=== PATIENT | female | born 1950 | race African-American/Black ===

== ENCOUNTER 2017-01-25 17:36 | Emergency (ER) | payer BC, MEDICAID ==
[~2017-01-25] VITALS: Ht 162.6 cm; Wt 91.0 kg
[~2017-01-25 17:36] MED LIST: AMLO10TA80; ATOR-2; BENA20TA3; CLOP75TA15; CLOP75TA2; GLIP10TA72 PO; METF500T PO
[2017-01-25] MEDS ORDERED: MORPHINE SULFATE 4 MG/ML CPJ (NOT FOR IM USE) IV STA (18:47)
[2017-01-25] MEDS ORDERED: ONDANSETRON HCL 4MG/2ML VIAL IV STA (18:47)
[2017-01-25 19:46] LABS: BASOPHILS % 0.7 % (0.0-2.0); EOSINOPHILS % 2.2 % (0.0-5.0); HEMATOCRIT. 37.7 % (36.0-48.0); HEMOGLOBIN. 12.2 g/dL (12.0-16.0); LYMPHOCYTES % 19.6 % (20.0-50.0); MEAN CORPUSCULAR HEMOGLOBIN 26.2 pg (28.0-32.0); MEAN CORPUSCULAR VOLUME 80.6 fL (81.0-99.0); MEAN PLATELET VOLUME 8.4 fl (7.4-10.4); MONOCYTES % 11.4 % (2.0-8.0); NEUTROPHILS % 66.1 % (40.0-76.0); PLATELET 222 x1000/uL (130-400); RED BLOOD CELL COUNT 4.68 mill/uL (4.2-5.4); RED CELL DISTRIBUTION WIDTH 14.6 % (11.6-14.6)
[2017-01-25 20:04] LABS: CARBON DIOXIDE 28 mEq/L (21-32); CHLORIDE 106 mEq/L (98-107); TROPONIN I < 0.02 ng/mL (0.00-0.04)
[2017-01-25] MEDS ORDERED: MORPHINE SULFATE 4 MG/ML CPJ (NOT FOR IM USE) IV ONE (20:45)
[2017-01-25 21:06] VITALS: BP 164/78
== END 2017-01-25 21:58 | disposition home or self-care (01) ==
LOC: ER 18:55
DX: M54.30 Sciatica, unspecified side (principal); R07.89 Other chest pain; E11.9 Type 2 diabetes mellitus without complications; I10 Essential (primary) hypertension; E78.00 Pure hypercholesterolemia, unspecified; K21.9 Gastro-esophageal reflux disease without esophagitis; Z90.710 Acquired absence of both cervix and uterus; Z90.49 Acquired absence of other specified parts of digestive tract; Z98.890 Other specified postprocedural states
CPT/HCPCS: 36415; 71010; 72110; 80053; 83690; 84484; 85025; 93005; 96374; 96375; 96376; 99285; J2270; J2405

== ENCOUNTER 2019-01-08 04:25 | Inpatient (IN) | payer BC, MEDICAID ==
[~2019-01-08] VITALS: Ht 162.6 cm; Wt 74.8 kg
[~2019-01-08 04:25] MED LIST changes: -AMLO10TA80; +AMLO10TA80 PO; -ATOR-2; +ATOR-2 PO; -BENA20TA3; -CLOP75TA15; +CLOP75TA15 PO; -CLOP75TA2; +GLIP10TA3 PO; -GLIP10TA72 PO
[2019-01-08] MEDS ORDERED: PREDNISONE 20MG TABLET PO STA (04:45)
[2019-01-08] MEDS ORDERED: IPRATROPIUM BROMIDE (0.02%) 0.5MG/2.5ML NEB HHN STA (04:45)
[2019-01-08] MEDS ORDERED: ALBUTEROL (0.083%) 2.5MG/3ML NEB HHN STA (04:45)
[2019-01-08 05:30] LABS: CHLORIDE 106 mEq/L (98-107)
[2019-01-08 05:33] LABS: BASOPHILS % 0.2 % (0.0-2.0); EOSINOPHILS % 4.2 % (0.0-5.0); HEMATOCRIT. 33.5 % (36.0-48.0); HEMOGLOBIN. 10.8 g/dL (12.0-16.0); LYMPHOCYTES % 16.1 % (20.0-50.0); MEAN CORPUSCULAR HEMOGLOBIN 25.5 pg (28.0-32.0); MEAN CORPUSCULAR VOLUME 79.1 fL (81.0-99.0); MEAN PLATELET VOLUME 8.6 fl (7.4-10.4); MONOCYTES % 9.6 % (2.0-8.0); NEUTROPHILS % 69.9 % (40.0-76.0); PLATELET 159 x1000/uL (130-400); RED BLOOD CELL COUNT 4.23 mill/uL (4.2-5.4); RED CELL DISTRIBUTION WIDTH 17.7 % (11.6-14.6)
[2019-01-08] MEDS ORDERED: NITROGLYCERIN 0.4MG TABLET SL SL ONE (05:45)
[2019-01-08] MEDS ORDERED: ASPIRIN 325MG EC TABLET PO ONE (06:30)
[2019-01-08] MEDS ORDERED: ACETAMINOPHEN 325MG TABLET PO PRN (08:45)
[2019-01-08] MEDS ORDERED: HYDROCODONE/ACETAMINOPHEN 5/325MG TABLET PO PRN (08:45)
[2019-01-08] MEDS ORDERED: ONDANSETRON HCL 4MG/2ML INJ IV PRN (08:45)
[2019-01-08] MEDS ORDERED: MORPHINE SULFATE 2 MG/ML CPJ (NOT FOR IM USE) IV PRN (08:45)
[2019-01-08] MEDS ORDERED: CLONIDINE 0.1MG TABLET PO PRN (08:45)
[2019-01-08 11:00] VITALS: BP 144/77
[2019-01-08] MEDS ORDERED: SIMV5TAB58 MT (11:28)
[2019-01-08] MEDS ORDERED: BENA20TA77 MT (11:28)
[2019-01-08 12:00] VITALS: BP 144/77
[2019-01-08] MEDS ORDERED: MAGNESIUM/ALUMINUM HYDROXIDE/SIMETHICONE 30ML UDC PO PRN (12:15)
[2019-01-08] MEDS: BLOOD SUGAR DIAGNOSTIC STRIP TEST SCH ×3 (12:26→21:40)
[2019-01-08] MEDS ORDERED: DEXTROSE 50% WATER 50ML SYRINGE IV PRN (12:30)
[2019-01-08] MEDS: AMLODIPINE 10MG TABLET PO SCH (13:07)
[2019-01-08] MEDS: INSULIN LISPRO 100 UNITS/ML SUBCUT SCH ×3 (13:09→21:45)
[2019-01-08] MEDS: ENOXAPARIN 40MG/0.4ML SYR SUBCUT SCH (13:10)
[2019-01-08 16:00] VITALS: BP 156/56
[2019-01-08] MEDS: IPRATROPIUM/ALBUTEROL 0.5-3(2.5)MG/3ML NEB HHN PRN (16:35)
[2019-01-08] MEDS: METFORMIN HCL 500MG TABLET PO SCH (18:08)
[2019-01-08 19:48] LABS: CREATINE KINASE MB FRACTION 5.5 ng/mL (0.5-3.6)
[2019-01-08 20:07] VITALS: BP 165/70
[2019-01-08] MEDS: FAMOTIDINE 20MG TABLET PO SCH (21:45)
[2019-01-09 00:04] VITALS: BP 136/51
[2019-01-09 00:07] LABS: CREATINE KINASE MB FRACTION 5.8 ng/mL (0.5-3.6)
[2019-01-09] MEDS: IPRATROPIUM/ALBUTEROL 0.5-3(2.5)MG/3ML NEB HHN PRN ×3 (01:35→21:34)
[2019-01-09 04:08] VITALS: BP 148/51
[2019-01-09] MEDS: GLIPIZIDE 5MG TABLET PO SCH (06:49)
[2019-01-09] MEDS: BLOOD SUGAR DIAGNOSTIC STRIP TEST SCH ×4 (06:50→20:32)
[2019-01-09] MEDS: METFORMIN HCL 500MG TABLET PO SCH ×2 (06:50→17:28)
[2019-01-09] MEDS: INSULIN LISPRO 100 UNITS/ML SUBCUT SCH ×4 (06:57→20:33)
[2019-01-09 07:17] LABS: BASOPHILS % 0.1 % (0.0-2.0); EOSINOPHILS % 0.3 % (0.0-5.0); LYMPHOCYTES % 14.2 % (20.0-50.0); MEAN CORPUSCULAR HEMOGLOBIN 25.5 pg (28.0-32.0); MEAN CORPUSCULAR VOLUME 78.8 fL (81.0-99.0); MEAN PLATELET VOLUME 8.8 fl (7.4-10.4); MONOCYTES % 10.8 % (2.0-8.0); NEUTROPHILS % 74.6 % (40.0-76.0); PLATELET 177 x1000/uL (130-400); RED BLOOD CELL COUNT 4.31 mill/uL (4.2-5.4); RED CELL DISTRIBUTION WIDTH 17.5 % (11.6-14.6)
[2019-01-09 07:48] LABS: CHLORIDE 108 mEq/L (98-107)
[2019-01-09 07:59] LABS: LDL CHOLESTEROL 44 mg/dL (5-100)
[2019-01-09 08:00] VITALS: BP 173/71
[2019-01-09 08:00] LABS: HDL CHOLESTEROL 58 mg/dL (40-59)
[2019-01-09] MEDS: ASPIRIN 81MG EC TABLET PO SCH (08:23)
[2019-01-09] MEDS: AMLODIPINE 10MG TABLET PO SCH (08:24)
[2019-01-09] MEDS: FAMOTIDINE 20MG TABLET PO SCH ×2 (08:24→20:49)
[2019-01-09 12:00] VITALS: BP 132/65
[2019-01-09] MEDS: ENOXAPARIN 40MG/0.4ML SYR SUBCUT SCH (13:11)
[2019-01-09] MEDS: CEFTRIAXONE 1 G PREMIX 50 ML IV SCH (13:11)
[2019-01-09] MEDS: AZITHROMYCIN 500 MG in DEXT 5% WATER 250 ML IV SCH (13:58)
[2019-01-09 16:00] VITALS: BP 115/61
[2019-01-09 20:00] VITALS: BP 140/70
[2019-01-10] VITALS: BP 145/74
[2019-01-10 04:00] VITALS: BP 140/70
[2019-01-10] MEDS: BLOOD SUGAR DIAGNOSTIC STRIP TEST SCH ×2 (06:22→12:25)
[2019-01-10] MEDS: INSULIN LISPRO 100 UNITS/ML SUBCUT SCH ×2 (06:22→12:25)
[2019-01-10] MEDS: GLIPIZIDE 5MG TABLET PO SCH (06:25)
[2019-01-10] MEDS: ASPIRIN 81MG EC TABLET PO SCH (08:53)
[2019-01-10] MEDS: METFORMIN HCL 500MG TABLET PO SCH (08:54)
[2019-01-10] MEDS: FAMOTIDINE 20MG TABLET PO SCH (08:54)
[2019-01-10] MEDS: AMLODIPINE 10MG TABLET PO SCH (08:54)
[2019-01-10] MEDS: IPRATROPIUM/ALBUTEROL 0.5-3(2.5)MG/3ML NEB HHN PRN (09:57)
[2019-01-10] MEDS: CEFTRIAXONE 1 G PREMIX 50 ML IV SCH (12:31)
[2019-01-10 13:09] VITALS: BP 140/59
[2019-01-10] MEDS: AZITHROMYCIN 500 MG in DEXT 5% WATER 250 ML IV SCH (13:29)
== END 2019-01-10 16:50 | disposition home or self-care (01) | DRG 202 ==
LOC: ER 04:25 → 6WST 06:03 → EDBEDREQTM 06:07 → EDBEDREQ 06:07 → SUPCPDRO 08:36 → ENRESERV 09:55
PROVIDERS: ADMIT Hospitalist; ATTEND Hospitalist
DX: J20.9 Acute bronchitis, unspecified (principal); J44.0 Chronic obstructive pulmonary disease with (acute) lower respiratory infection; J44.1 Chronic obstructive pulmonary disease with (acute) exacerbation; I50.9 Heart failure, unspecified; E11.9 Type 2 diabetes mellitus without complications; I11.0 Hypertensive heart disease with heart failure; R07.89 Other chest pain; Z83.3 Family history of diabetes mellitus; Z87.891 Personal history of nicotine dependence; Z90.710 Acquired absence of both cervix and uterus; Z79.899 Other long term (current) drug therapy; Z90.49 Acquired absence of other specified parts of digestive tract
CPT/HCPCS: 36415; 71045; 80061; 82550; 82553; 82962; 83880; 84484; 87070; 93005; 93970; 94640; 99285; C1893; J0456; J0696; J1650; J1815; J7050; J7060; J7512; J7611; J7620

== ENCOUNTER 2019-06-09 10:56 | Emergency (ER) | payer BC, MEDICAID ==
[~2019-06-09] VITALS: Ht 162.6 cm; Wt 78.0 kg
[~2019-06-09 10:56] MED LIST changes: +BENA20TA77 MT; +SIMV5TAB58 MT
[2019-06-09 11:59] LABS: BASOPHILS % 0.4 % (0.0-2.0); HEMATOCRIT. 36.7 % (36.0-48.0); HEMOGLOBIN. 11.7 g/dL (12.0-16.0); LYMPHOCYTES % 14.8 % (20.0-50.0); MEAN CORPUSCULAR HEMOGLOBIN 26.4 pg (28.0-32.0); MEAN CORPUSCULAR VOLUME 82.9 fL (81.0-99.0); MEAN PLATELET VOLUME 8.5 fl (7.4-10.4); MONOCYTES % 5.9 % (2.0-8.0); NEUTROPHILS % 75.9 % (40.0-76.0); PLATELET 187 x1000/uL (130-400); RED BLOOD CELL COUNT 4.42 mill/uL (4.2-5.4); RED CELL DISTRIBUTION WIDTH 18.2 % (11.6-14.6)
[2019-06-09 12:03] LABS: CHLORIDE 107 mEq/L (98-107)
[2019-06-09 12:11] LABS: PARTIAL THROMBOPLASTIN TIME 27.1 sec (23.4-31.0); PROTHROMBIN TIME 9.9 sec (9.6-11.0)
[2019-06-09] MEDS ORDERED: SODIUM CHLORIDE 0.9% 1,000 ML IV ONE (12:44)
[2019-06-09] MEDS ORDERED: FAMOTIDINE 20MG/2ML VIAL IV STA (12:44)
[2019-06-09 12:47] LABS: CLARITY URINE CLEAR (CLEAR); COLOR URINE YELLOW (YELLOW); KETONES URINE NEGATIVE (NEGATIVE); LEUKOCYTE ESTERASE URINE NEGATIVE (NEGATIVE); NITRITE URINE NEGATIVE (NEGATIVE); OCCULT BLOOD URINE NEGATIVE (NEGATIVE); PROTEIN URINE NEGATIVE (NEGATIVE); SPECIFIC GRAVITY URINE 1.006 (1.005-1.030); UROBILINOGEN URINE 0.2 E.U./dL (0.2-1.0)
[2019-06-09 14:40] VITALS: BP 147/65
== END 2019-06-09 14:40 | disposition home or self-care (01) ==
LOC: ER 11:16
DX: K64.4 Residual hemorrhoidal skin tags (principal); I11.0 Hypertensive heart disease with heart failure; I50.9 Heart failure, unspecified; J44.9 Chronic obstructive pulmonary disease, unspecified; E11.9 Type 2 diabetes mellitus without complications; E78.00 Pure hypercholesterolemia, unspecified; Z98.61 Coronary angioplasty status; Z79.84 Long term (current) use of oral hypoglycemic drugs
CPT/HCPCS: 36415; 74176; 80053; 81003; 83690; 85025; 85610; 85730; 86850; 86900; 86901; 99284; J7030

== ENCOUNTER 2020-11-09 10:43 | Emergency (ER) | payer BC, MEDICAID ==
[~2020-11-09] VITALS: Ht 162.6 cm; Wt 84.0 kg
[2020-11-09 10:55] VITALS: BP 155/50
[2020-11-09] MEDS: ACETAMINOPHEN 325MG TABLET PO ONE (11:42)
[2020-11-09] MEDS ORDERED: TOPUD MT (12:41)
== END 2020-11-09 12:59 | disposition home or self-care (01) ==
LOC: ER 10:43
DX: M25.551 Pain in right hip (principal); I11.0 Hypertensive heart disease with heart failure; I50.9 Heart failure, unspecified; J44.1 Chronic obstructive pulmonary disease with (acute) exacerbation; E11.9 Type 2 diabetes mellitus without complications; E78.00 Pure hypercholesterolemia, unspecified; Z79.899 Other long term (current) drug therapy; Z90.710 Acquired absence of both cervix and uterus
CPT/HCPCS: 73502; 99283

== ENCOUNTER 2021-01-24 18:11 | Emergency (ER) | payer MEDICARE, MEDICAID ==
[~2021-01-24] VITALS: Ht 172.7 cm; Wt 98.0 kg
[~2021-01-24 18:11] MED LIST changes: +TOPUD MT
[2021-01-24] MEDS ORDERED: HYDROCODONE/ACETAMINOPHEN 5/325MG TABLET PO ONE (18:45)
[2021-01-24 19:05] LABS: BASOPHILS % 0.4 % (0.0-2.0); EOSINOPHILS % 1.8 % (0.0-5.0); HEMATOCRIT. 29.3 % (36.0-48.0); LYMPHOCYTES % 19.1 % (20.0-50.0); MEAN CORPUSCULAR HEMOGLOBIN 21.3 pg (28.0-32.0); MEAN CORPUSCULAR VOLUME 69.7 fL (81.0-99.0); MEAN PLATELET VOLUME 8.2 fl (7.4-10.4); MONOCYTES % 12.6 % (2.0-8.0); NEUTROPHILS % 66.1 % (40.0-76.0); PLATELET 212 x1000/uL (130-400)
[2021-01-24 19:09] LABS: CLARITY URINE CLEAR (CLEAR); COLOR URINE DARK YELLOW (YELLOW); KETONES URINE TRACE (NEGATIVE); LEUKOCYTE ESTERASE URINE 1+ (NEGATIVE); NITRITE URINE POSITIVE (NEGATIVE); OCCULT BLOOD URINE NEGATIVE (NEGATIVE); PROTEIN URINE TRACE (NEGATIVE); SPECIFIC GRAVITY URINE 1.031 (1.005-1.030); UROBILINOGEN URINE 0.2 E.U./dL (0.2-1.0)
[2021-01-24 19:14] LABS: CHLORIDE 110 mEq/L (98-107)
[2021-01-24 19:30] VITALS: BP 148/65
[2021-01-24 19:48] LABS: PLATELET ESTIMATE NORMAL
[2021-01-24] MEDS ORDERED: PIPERACILLIN/TAZ 3.375G PREMIX 50 ML IV ONE (20:45)
[2021-01-24] MEDS ORDERED: METRONIDAZOLE 500 MG PREMIX 100 ML IV ONE (20:45)
== END 2021-01-24 22:48 | disposition short-term general hospital (02) ==
LOC: ER 18:11
DX: K57.32 Diverticulitis of large intestine without perforation or abscess without bleeding (principal); N30.00 Acute cystitis without hematuria; J44.9 Chronic obstructive pulmonary disease, unspecified; E11.9 Type 2 diabetes mellitus without complications; I10 Essential (primary) hypertension; Z90.49 Acquired absence of other specified parts of digestive tract; Z90.710 Acquired absence of both cervix and uterus; Z79.84 Long term (current) use of oral hypoglycemic drugs
CPT/HCPCS: 36415; 74176; 80053; 81003; 82962; 83690; 85025; 96365; 96367; 99284; J2543; J3490